=== PATIENT | male | born 1960 | race Caucasian/White ===

== ENCOUNTER → 2021-07-02 11:12 | Outpatient (CLI) | payer OTHER, SELFPAY ==
--- NOTE | ~2021-07-02 | US_ITS ---
US retroperitoneal comp DATE: 07/02/2021 11:49 INDICATION: Urinary retention. Incomplete bladder emptying. Right flank pain. TECHNIQUE: Real-time imaging of kidneys and urinary bladder COMPARISON: 08/11/[address] abdomen pelvis FINDINGS: The kidneys each measure approximately 12.7 cm length. No renal mass lesion or hydronephros is is evident. There is an approximately 1.4 cm soft tissue projection into the urinary bladder lumen. Cystoscopic c orrelation is recommended to evaluate for possible urothelial carcinoma of the bladder; differential diagnosis includes prostate enlargement and prostate carcinoma. Prevoid urinary bladder volume is 328 cc. Postvoid urinary bladder volume is 98 cc. IMPRESSION: Cystoscopic correlation is recommended to exclude urothelial bladder cancer or prostate e nlargement or invasive prostate cancer. Urinary bladder retention Reviewed, dictated and finalized at [facility]. Reviewed, dictated and finalized at [facility] [employer] IMPRESSION: Cystoscopic correlation is recommended to exclude urothelial bladde r cancer or prostate enlargement or invasive prostate cancer. Urinary bladder retention
== END ==
PROVIDERS: Visit Provider Nurse Practitioner
DX: R33.9 Retention of urine, unspecified (principal)
CPT/HCPCS: 76770